=== PATIENT | male | born 1985 | race Caucasian/White ===

== ENCOUNTER 2016-05-05 22:41 | Inpatient (IN) | payer OTHER ==
[~2016-05-05] VITALS: Ht 177.8 cm; Wt 86.0 kg
[2016-05-05 22:45] VITALS: BP 145/87; PULSE 101; RESP 18; TEMP 98.1; O2SAT 95
[2016-05-05 22:48] VITALS: BP 134/79; PULSE 102; RESP 18; O2SAT 100; O2SAT 95
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
[2016-05-05 23:09] LABS: AUTOMATED NEUTROPHIL # 5.4 TH/MM3 (1.8-7.7); BASOPHIL % 0.4 % (0.0-2.0); EOSINOPHIL % 0.3 % (0.0-4.0); HEMATOCRIT 43.8 % (39.0-51.0); HEMO FLAGS DIFF FINAL; LYMPH % 30.9 % (9.0-44.0); LYMPHOCYTE # 2.7 TH/MM3 (1.0-4.8); MEAN CELL VOLUME 90.1 FL (80.0-100.0); MEAN CORPUSCULAR HEMOGLOBIN 32.1 PG (27.0-34.0); MEAN CORPUSCULAR HGB CONC 35.7 % (32.0-36.0); MONO % 7.1 % (0.0-8.0); NEUT % 61.3 % (16.0-70.0); PLATELET COUNT 182 TH/MM3 (150-450); RED BLOOD COUNT 4.87 MIL/MM3 (4.50-5.90); RED CELL DISTRIBUTION WIDTH 13.3 % (11.6-17.2); WHITE BLOOD COUNT 8.9 TH/MM3 (4.0-11.0)
[2016-05-05] MEDS ORDERED: IOHEXOL 350 MG/ML 10 ML VIAL (for RAD DIAG) IV ONE (23:22)
[2016-05-05 23:31] LABS: BICARBONATE 26.1 MEQ/L (21.0-32.0); POTASSIUM 3.7 MEQ/L (3.5-5.1)
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
[2016-05-06] VITALS (13 sets, daily range): BP systolic 120–164; BP diastolic 74–93; PULSE 70–104; RESP 14–20; TEMP 95.1–99; O2SAT 95–100
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
[2016-05-06] MEDS ORDERED: SODIUM CHLOR 0.9% 1000 ML INJ 1,000 ML IV SCH (01:19)
[2016-05-06] MEDS ORDERED: NALOXONE HCL 0.4 MG/ML AMP IV PRN (01:30)
[2016-05-06] MEDS ORDERED: ONDANSETRON HCL 4 MG/2 ML VIAL IV PRN ×2 (01:30→07:15)
[2016-05-06] MEDS ORDERED: SODIUM CHLORIDE 0.9% FLUSH 5 ML FLUSH IVF PRN (01:30)
[2016-05-06] MEDS ORDERED: Post-op Orders (for Pharmacy) MISC XX ONE (01:30)
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
[2016-05-06 04:34] LABS: INTERNATIONAL NORMALIZED RATIO 1.1 RATIO; PROTHROMBIN TIME - PATIENT 12.3 SEC (9.8-11.6)
[2016-05-06] MEDS ORDERED: MECLIZINE HCL 25 MG TAB PO PRN (05:45)
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
[2016-05-06] MEDS ORDERED: RESP: ALBUTEROL 2.5 MG/IPRATROPIUM 0.5 MG NEB (PRN) INH (07:15)
[2016-05-06] MEDS ORDERED: SODIUM CHLORIDE 0.9% FLUSH 5 ML FLUSH IV FLUSH PRN (07:15)
[2016-05-06] MEDS: LACTULOSE SYRUP 20 GM/30 ML CUP PO SCH (08:50)
[2016-05-06] MEDS: PANTOPRAZOLE SOD 40 MG DELAYED RELEASE TAB PO SCH (08:50)
[2016-05-06] MEDS: DOCUSATE SODIUM 100 MG CAP PO SCH ×2 (08:50→21:00)
[2016-05-06] MEDS: ACETAMINOPHEN 1000 MG/100 ML VIAL IV SCH ×3 (08:51→20:00)
[2016-05-06] MEDS ORDERED: SODIUM CHLORIDE 0.9% FLUSH 5 ML FLUSH IV FLUSH SCH (09:00)
[2016-05-06] MEDS: SODIUM CHLORIDE 0.9% FLUSH 5 ML FLUSH IVF SCH ×2 (09:11→21:19)
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
[2016-05-06] MEDS ORDERED: MAGNESIUM HYDROXIDE SUSP 30 ML CUP PO SCH (21:00)
[2016-05-06] MEDS: oxyCODONE/ACETAMINOPHEN 5 MG/325 MG TAB PO PRN (21:17)
[2016-05-07] VITALS: BP 122/74; PULSE 84; RESP 20; TEMP 98; O2SAT 97
[2016-05-07] MEDS: ACETAMINOPHEN 1000 MG/100 ML VIAL IV SCH (02:29)
[2016-05-07 04:00] VITALS: BP 136/64; PULSE 68; RESP 18; TEMP 97; O2SAT 96
[2016-05-07 07:03] LABS: AUTOMATED NEUTROPHIL # 6.3 TH/MM3 (1.8-7.7); BASOPHIL % 0.3 % (0.0-2.0); EOSINOPHIL % 0.3 % (0.0-4.0); HEMO FLAGS DIFF FINAL; MEAN CELL VOLUME 90.2 FL (80.0-100.0); MEAN CORPUSCULAR HEMOGLOBIN 31.8 PG (27.0-34.0); MEAN CORPUSCULAR HGB CONC 35.3 % (32.0-36.0); MONO % 7.4 % (0.0-8.0); PLATELET COUNT 151 TH/MM3 (150-450); RED BLOOD COUNT 4.88 MIL/MM3 (4.50-5.90); RED CELL DISTRIBUTION WIDTH 13.3 % (11.6-17.2)
[2016-05-07 07:30] LABS: BICARBONATE 29.3 MEQ/L (21.0-32.0); POTASSIUM 4.2 MEQ/L (3.5-5.1)
[2016-05-07] MEDS: DOCUSATE SODIUM 100 MG CAP PO SCH (08:06)
[2016-05-07] MEDS: PANTOPRAZOLE SOD 40 MG DELAYED RELEASE TAB PO SCH (08:06)
[2016-05-07] MEDS: LACTULOSE SYRUP 20 GM/30 ML CUP PO SCH (08:06)
[2016-05-07] MEDS: oxyCODONE/ACETAMINOPHEN 5 MG/325 MG TAB PO PRN ×2 (08:08→15:33)
[2016-05-07] MEDS: SODIUM CHLORIDE 0.9% FLUSH 5 ML FLUSH IVF SCH (08:09)
[2016-05-07 08:14] VITALS: BP 106/68; PULSE 64; RESP 18; TEMP 97.4; O2SAT 99
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
[2016-05-07 12:16] VITALS: BP 112/71; PULSE 62; RESP 18; TEMP 97.3; O2SAT 98
[2016-05-07] MEDS ORDERED: MILKSUS PO (15:09)
[2016-05-07] MEDS ORDERED: DOCU1CAP39 PO (15:09)
[2016-05-07 16:05] VITALS: BP 121/78; PULSE 78; RESP 18; TEMP 97.1; O2SAT 99
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
== END 2016-05-07 19:20 | disposition home or self-care (01) | DRG 84 ==
LOC: NEPE 22:41 → NEDA 05-06 01:14 → N03A 05-06 04:08 → N05A 05-06 14:10
PROVIDERS: ADMIT Surgery; ATTEND Surgery
DX: S06.5X9A Traumatic subdural hemorrhage with loss of consciousness of unspecified duration, initial encounter (principal); S02.109A Fracture of base of skull, unspecified side, initial encounter for closed fracture; S02.19XA Other fracture of base of skull, initial encounter for closed fracture; H91.8X1 Other specified hearing loss, right ear; V29.88XA Motorcycle rider (driver) (passenger) injured in other specified transport accidents, initial encounter; Y92.415 Exit ramp or entrance ramp of street or highway as the place of occurrence of the external cause
CPT/HCPCS: 70450; 70486; 71260; 72125; 73610; 74177; 80048; 85025; 85610; 87641; 94150; J0131; J2405; J7030; Q9967